=== PATIENT | female | born 1990 | race Caucasian/White ===

== ENCOUNTER 2018-04-29 04:13 | Inpatient (IN) ==
[2018-04-29] MEDS ORDERED: CALCIUM CARBONATE Chewable 500mg TABLET PO PRN (05:16)
[2018-04-29] MEDS ORDERED: MAG-AL + SIM ORAL LIQUID 30ml PO PRN (05:16)
[2018-04-29] MEDS ORDERED: ACETAMINOPHEN 500 MG TABLET PO PRN (05:16)
[2018-04-29] MEDS ORDERED: LIDOCAINE 1% (10mg/ml) 2mL INJ PF SDV ID PRN (05:16)
[2018-04-29] MEDS ORDERED: METHYLERGONOVINE 0.2 MG/ML INJECTION IM PRN (05:16)
[2018-04-29] MEDS ORDERED: CARBOPROST 250 MCG/ML INJECTION IM PRN (05:16)
[2018-04-29] MEDS: LR 1,000 ML IV PRN ×2 (06:00→08:56)
[2018-04-29 06:07] VITALS: BMI 32.5
[2018-04-29] MEDS ORDERED: DiphenhydrAMINE 50 MG/ML INJECTION IVP PRN (08:00)
[2018-04-29] MEDS ORDERED: NALOXONE 0.4 MG/ML INJECTION IVP PRN (08:00)
[2018-04-29] MEDS ORDERED: ROPIVACAINE 1% 10MG/ML INJ 200 MG, SUFentanil 50 MCG in NS 100 ML EPI PRN (08:00)
[2018-04-29] MEDS ORDERED: ONDANSETRON 4 MG/2 ML INJECTION IVP PRN (08:00)
--- NOTE | 2018-04-29 08:00 | Anesthesia Preoperative Report ---
Anesthesia Epidural/Spinal Rec - Date and Time Date: 04/29/18 Preoperative Diagnosis: term Procedure: Labor Epidural Plan: Epidural - Vital Signs /Para: P:2 - Medictaions & Allergies Inpatient Medications: Current Medications Acetaminophen (Tylenol) 500 - 1,000 mg PO Q4H PRN PRN Reason: Pain Al Hydroxide/Mg Hydroxide (Maalox Plus) 30 ml PO Q3H PRN PRN Reason: Indigestion Calcium Carbonate (Tums) 500 - 1,000 mg PO Q2H PRN PRN Reason: Indigestion Carboprost Tromethamine (Hemabate) 250 mcg IM O PRN PRN Reason: .Downtime Lactated Ringer's (Lactated Ringers) 1,000 mls @ 999 mls/hr IV .Q1H1M PRN Last Admin: 04/29/18 06:00 Dose: 999 mls/hr Lidocaine HCl (Xylocaine-Mpf 1% Vial) 0.2 mg ID O PRN PRN Reason: IV Start Methylergonovine Maleate (Methergine) 0.2 mg IM O PRN Misoprostol (Cytotec) 800 mcg ID ONCE PRN Allergies/Adverse Reactions: Allergies Allergy/AdvReac Type Severity Reaction Status Date / Time scopolamine Allergy Severe SWELLING Verified 04/29/18 04:51 - Home Medications Home Medications: Home Medications Medication Instructions Recorded Confirmed Type Docosahexanoic Acid [ Dha] 2 cap PO DAILY #0 cap 11/02/15 04/29/18 History - Medical History Respiratory: DENIES: Asthma, Bronchitis, Chronic Obstructive Pulmonary Disease (COPD), Dyspnea, Orthopnea, Pulmonary Embolism, Pneumonia, Upper Respiratory Infection, Pulmonary Edema, Sleep Apnea, Tuberculosis, Other Cardiovascular: DENIES: Abnormal EKG, Angina, Arrhythmia, Congestive Heart Failure, Coronary Artery Disease, Heart Murmur, Hypertension, Hypotension, High Cholesterol, Myocardial Infarction, Rheumatic Fever, Valvular Heart Disease, Other Gastrointestional: DENIES: Obstructive Bowel, Hepatitis, Cirrhosis, Nausea or Vomiting Present, Gastroesophageal Reflux Disease, Gastrointestinal Bleeding, Hiatal Hernia, Ulcer , Morbid Obesity, Other Neuro/Musculoskeletal: Denies: Back Problems, Cerebrovascular Accident, Depression, Headaches, Loss of Consciousness, Muscle Weakness, Neuromuscular Disorder, Paralysis, Paresthesia, Syncope, Seizures, Other Renal/Endocrine: DENIES: Diabetes Mellitus Type 1, Diabetes Mellitus Type 2, Renal Failure, Dialysis, Thyroid Disease, Weight Loss, Weight Gain, Other Other History: Reports: Anesthesia Reactions (vomiting and scopolamine patch resulted in face swelling), Now - Surgical History Reproductive Surgery/Treatment: Reports: Dilation and Curettage (2013) DENIES: Section Anesthesia Reactions: Nausea and Vomiting Hx Family Anesthesia Reaction: No History of Motion Sickness: No - Social History Smoking Status: Never smoker Second Hand Exposure: No Substance Use Type: does not use Alcohol Intake: former Alcohol Intake Frequency: does not drink Hx Chewing Tobacco Use: No - Pertinent Findings Lab Data: CBC and BMP 04/29/18 05:54 - Physical Exam Respiratory Exam: lungs clear, bilateral breath sounds equal Cardiovascular Exam: regular rate and rhythm, no murmur - Airway Assessment Mallampati Score: I TMD: 3 Fingerbreadths Neck Extension: good Overall Assessment: no airway concerns - ASA ASA Score: 2 - Discussion Discussion: Discussed risks/options/alternatives of anesthesia and questions answered. Patient consents. Nursing pain assessment noted. Anesthesia Discussion: spouse Attestation Statement: Prior to the delivery of any anesthetic medication, I examined the patient, developed the plan, obtained the patient's consent and discussed the risk and benefits of the procedure with the patient/guardian.
[2018-04-29] MEDS ORDERED: DiphenhydrAMINE 25 MG CAPSULE PO PRN (12:18)
[2018-04-29] MEDS ORDERED: HYDROCORTISONE 2.5% CREAM 30gm RECTALLY PRN (12:18)
[2018-04-29] MEDS ORDERED: RHOPHYLAC - PHARMACY CONSULT MC ONE ×2 (12:18)
[2018-04-29] MEDS ORDERED: OXYTOCIN DRIP 30 UNIT/500 ML ML IV SCH (12:30)
--- NOTE | 2018-04-29 14:39 | Labor and Delivery Note ---
DATE OF DELIVERY: 04/29/2018 DELIVERY NOTE Maite is a 28-year-old, 4, para 2, at 38 weeks 6 days gestational age , who presents to [facility] in spontaneous labor. She received an epidural. Her membranes were ruptured artificially returning clear fluids. She progressed very nicely throughout labor and only had to push with two contractions. She had a spontaneous vaginal delivery in the KRISTI position of a viable female , Apgars 8/9, weight 4045 g, name "Soo." Baby was vigorous at delivery, so she was placed on mom's abdomen and the cord clamping was delayed for more than 2 minutes. The placenta delivered spontaneously. She had a right periurethral laceration that was repaired with 3-0 chromic. Mom and baby tolerated the delivery well. [facility] CENTEREdgar
[2018-04-29] MEDS: IBUPROFEN 800 MG TABLET PO PRN (15:32)
[2018-04-29] MEDS: HYDROCODONE/APAP 5mg/325mg TABLET PO PRN (20:04)
[2018-04-30] MEDS: IBUPROFEN 800 MG TABLET PO PRN ×2 (01:29→09:44)
[2018-04-30 06:18] VITALS: BP 140/87; PULSE 73; RESP 20; TEMP 98; O2SAT 97
[2018-04-30] MEDS: HYDROCODONE/APAP 5mg/325mg TABLET PO PRN ×2 (06:25→11:15)
--- NOTE | 2018-04-30 08:05 | OB/GYN Progress Note ---
OB-PP Progress Note - General PPD1 Maternal Group B Strep: Negative Maternal blood type: A- Maternal Rubella Status: Immune General: Baby Rh pos - Subjective Date: 04/30/18 Lochia: Minimal Pain: controlled Voiding: voiding - Objective Vital Signs: Last Vital Signs Temp 98.0 F 04/30/18 06:17 Pulse 73 04/30/18 06:17 Resp 20 04/30/18 06:17 BP 140/87 H 04/30/18 06:17 Pulse Ox 97 04/30/18 06:17 General: alert and oriented Abdomen: fundus firm, non-tender Extremities: non-tender Laboratory: Laboratory Results - last 24 hr 04/29/18 04/29/18 04/29/18 05:54 14:08 14:40 Hgb /Adult Ratio 0.0000 Blood Type A Negative Antibody Screen Negative RhIG Candidate? Is a candidate - Assessment Assessment: - Plan Plan: routine care, rhophylac, discharge home, continue PNV
[2018-04-30] MEDS ORDERED: RHO(D) IMMUNE GLOBULIN 300 MCG/2 ML INJECTION IVP ONE (09:00)
[2018-04-30] MEDS ORDERED: DOCUSATE CALCIUM 240 MG CAPSULE PO SCH (09:00)
== END 2018-04-30 17:35 | disposition home or self-care (01) | DRG 775 ==
LOC: OBOBS 04:13 → MC 04:14
PROVIDERS: ADMIT Obstetrics & Gynecology; ATTEND Obstetrics & Gynecology